=== PATIENT | female | born 1965 | race Caucasian/White ===

== ENCOUNTER 2017-05-18 14:28 | Inpatient (IN) | payer OTHER ==
[~2017-05-18] VITALS: Ht 153.7 cm; Wt 71.8 kg
[~2017-05-18 14:28] MED LIST: ARTHRITIS PAIN650 M5 PO; ASPIR 8181 M1 PO; CRESTOR10 MG PO; INVOKANA100 MG PO; K-DUR20 MEQ PO; LASIX40 MG PO; METOPROLOL SUCC25 MG PO; OMEGA 3 500 SO1 EACH PO; SONATA10 MG PO; ULTRAM ER100 MG PO; ULTRAM50 MG PO; VITAMIN B-625 MG PO; ZOLOFT100 MG PO
[2017-05-18 15:32] LABS: MCH 27.8 PG (29.0-34.0); MCHC 30.7 G/DL (30.0-36.0); RBC DIS.WIDTH-CV 13.7 % (11.8-14.6); RBC DIS.WIDTH-SD 46.1 % (39-53); WHITE BLOOD COUNT 9.5 K/uL (4.1-10.2)
[2017-05-18 15:44] LABS: CHLORIDE 107 mEq/L (99-109); SODIUM 144 mEq/L (136-147)
[2017-05-18 15:46] LABS: GLUCOSE 135 mg/dL (70-99)
[2017-05-18 15:47] LABS: ANION GAP 10 MEQ/L (2-14)
[2017-05-18 15:50] LABS: GFR ESTIMATE (CALCULATED) > 59 mL/min/; TROP-I INTERPRETATION NEGATIVE; TROPONIN-I < 0.01 ng/mL (0.0-0.30); UREA NITROGEN (BUN) 16 mg/dL (9-23)
[2017-05-18 15:59] LABS: MCV 90.6 FL (83-99)
[2017-05-18 16:18] LABS: MEAN PLAT.VOLUME 11.5 uM^3 (9.5-12.4); PLAT.SUFFICIENCY ADEQUATE
[2017-05-18 16:19] LABS: PLATELET COUNT 256 K/uL (156-360)
[2017-05-18 18:21] LABS: MAGNESIUM 2.1 mg/dL (1.3-2.7)
[2017-05-18] MEDS ORDERED: LOPRESSOR25 MG PO (22:05)
[2017-05-18] MEDS ORDERED: VITAMIN B-625 MG PO (22:08)
[2017-05-18] MEDS ORDERED: LIDOCAINE HCL35 GM TP (22:09)
[2017-05-19] VITALS (9 sets, daily range): BP systolic 98–121; BP diastolic 58–87
[2017-05-19 08:13] LABS: POINT-OF-CARE METER ID UU13113698
[2017-05-19 11:52] LABS: POINT-OF-CARE METER ID UU13113698
[2017-05-19 17:07] LABS: POINT-OF-CARE METER ID UU14314088
[2017-05-19 22:09] LABS: POINT-OF-CARE METER ID UU13113781
[2017-05-20 04:02] VITALS: BP 124/67
[2017-05-20 08:00] VITALS: BP 123/79
[2017-05-20 08:09] LABS: POINT-OF-CARE METER ID UU13113781
[2017-05-20 08:59] VITALS: BP 116/75
[2017-05-20 11:56] LABS: POINT-OF-CARE METER ID UU13113698
[2017-05-20 12:53] VITALS: BP 122/66
[2017-05-20 16:40] LABS: POINT-OF-CARE METER ID UU14174216
[2017-05-20 19:30] VITALS: BP 108/64
[2017-05-20 20:50] LABS: POINT-OF-CARE METER ID UU14314088
[2017-05-21 00:01] VITALS: BP 113/56
[2017-05-21 05:00] VITALS: BP 126/70
[2017-05-21 07:54] VITALS: BP 115/55
[2017-05-21 08:02] LABS: POINT-OF-CARE METER ID UU13113698
[2017-05-21] MEDS ORDERED: ELIQUIS5 MG PO (11:00)
[2017-05-21] MEDS ORDERED: PRAVASTATIN SOD80 MG PO (11:00)
[2017-05-21] MEDS ORDERED: CORDARONE200 MG PO (11:00)
[2017-05-21] MEDS ORDERED: DIGOXIN125 MCG PO (11:02)
[2017-05-21] MEDS ORDERED: FUROSEMIDE20 MG PO (11:02)
[2017-05-21] MEDS ORDERED: LOPRESSOR25 MG PO (11:07)
[2017-05-21 11:39] LABS: POINT-OF-CARE METER ID UU14174216
== END 2017-05-21 13:00 | disposition home health service (06) | DRG 309 ==
LOC: EME 14:28 → 4EAST 05-19 00:16 → EDOF 05-19 00:16 → ENRESERV 05-19 00:19 → EDOF 05-19 00:47 → ENRESERV 05-19 00:52 → 4EAST 05-19 02:02
PROVIDERS: Hospitalist
DX: I48.0 Paroxysmal atrial fibrillation (principal); J44.1 Chronic obstructive pulmonary disease with (acute) exacerbation; J90 Pleural effusion, not elsewhere classified; I95.9 Hypotension, unspecified; I10 Essential (primary) hypertension; E78.5 Hyperlipidemia, unspecified; E11.9 Type 2 diabetes mellitus without complications; F32.9 Major depressive disorder, single episode, unspecified; M19.90 Unspecified osteoarthritis, unspecified site; E66.9 Obesity, unspecified; Z68.32 Body mass index [BMI] 32.0-32.9, adult; Z95.3 Presence of xenogenic heart valve; Z79.82 Long term (current) use of aspirin; Z79.84 Long term (current) use of oral hypoglycemic drugs; Z87.891 Personal history of nicotine dependence
CPT/HCPCS: 71020; 71275; 80048; 82948; 83735; 84443; 84484; 85027; 93005; 94640; 94640 76; 99202; 99281; 99285; J1650; J1815; J1940; J7030